=== PATIENT | female | born 1965 | race Caucasian/White ===

== ENCOUNTER → 2017-06-11 18:16 | Outpatient (CLI) | payer OTHER ==
[2014-09-29 14:29] VITALS: BMI 22.0
[~2017-06-11 18:16] MED LIST: ALLERGY MEDICINE; NASACORT AQ N16.5 GM NASAL
== END | disposition home or self-care (01) ==
LOC: D.MAMMO 08:00
DX: Z12.31 Encounter for screening mammogram for malignant neoplasm of breast (principal)

== ENCOUNTER 2019-01-20 19:00 | Outpatient (CLI) | payer OTHER ==
[2014-09-29 14:29] VITALS: BMI 22.0
== END 2019-01-20 23:59 | disposition home or self-care (01) ==
LOC: D.MAMMO 19:00
PROVIDERS: ATTEND Nurse Practitioner Family
DX: Z12.31 Encounter for screening mammogram for malignant neoplasm of breast (principal)

== ENCOUNTER → 2019-01-22 12:04 | Outpatient (CLI) | payer OTHER ==
[2014-09-29 14:29] VITALS: BMI 22.0
--- NOTE | 2019-01-23 15:34 | ST ---
PATIENT:GARTH WOODS JESSE MEDICAL RECORD: [id number] SEX: F LOCATION:[facility] ORDER #: ADMISSION DATE: 01/22/19 AGE OF PATIENT: 53 REFERRING PHYSICIAN: INTERPRETING PHYSICIAN: KIMI JERRY MD DATE OF SERVICE: 01/22/2019 PROCEDURE: EKG treadmill stress test. INDICATION: Chest pain, hypertension, hyperlipidemia. She was exercised on standard Mak protocol for 10 minutes, terminated due to achievement of maximum target heart rate response with no anginal symptomatology. No EKG changes, no dysrhythmias. OVERALL IMPRESSION: Negative for inducible ischemia at adequate cardiac workload. TRANSINT:[id number] Voice Confirmation ID: [id number] DOCUMENT ID: [id number] KIMI JERRY MD at 1534 CC: [id number] DICTATION DATE: 01/22/192155 ASSET PROTECTION SPECIALIST: 01/23/19 0118 DEP CLI 01/22/19 [place] [id number] [place] [address]
== END | disposition home or self-care (01) ==
LOC: D.HCCECHO 12:04 → D.HCCARDIO 12:30 → D.HCCECHO 12:30 → D.HCCARDIO 13:00
PROVIDERS: ATTEND Internal Medicine Interventional Cardiology
DX: I20.9 Angina pectoris, unspecified (principal)